=== PATIENT | female | born 1940 | race Caucasian/White ===

== ENCOUNTER 2021-12-27 13:24 | Emergency (ER) | payer BC, MEDICARE | END 2021-12-27 13:56 | disposition home or self-care (01) | LOC: BURERS 13:24 | DX: L03.116 Cellulitis of left lower limb (principal); I10 Essential (primary) hypertension; E11.9 Type 2 diabetes mellitus without complications; E78.00 Pure hypercholesterolemia, unspecified | CPT/HCPCS: 99283 ==

== ENCOUNTER 2022-01-03 14:34 | Emergency (ER) | payer MEDICARE ==
[2022-01-03] MEDS ORDERED: Bacitracin 1 PK ONE (15:06)
== END 2022-01-03 15:12 | disposition home or self-care (01) ==
LOC: BURERS 14:34
DX: S91.351D Open bite, right foot, subsequent encounter (principal); E11.9 Type 2 diabetes mellitus without complications; I10 Essential (primary) hypertension; E78.00 Pure hypercholesterolemia, unspecified; W57.XXXD Bitten or stung by nonvenomous insect and other nonvenomous arthropods, subsequent encounter; Z79.82 Long term (current) use of aspirin; Z79.899 Other long term (current) drug therapy
CPT/HCPCS: 99282

== ENCOUNTER 2022-03-12 21:21 | Emergency (ER) | payer OTHER, MEDICARE ==
[2022-03-12] MEDS ORDERED: Lidocaine 1% w/Epinephrine 1:100K 20 ML VIAL ONE (21:32)
[2022-03-12] MEDS ORDERED: Boostrix 0.5 ML (Tdap) VIAL ONE (21:50)
== END 2022-03-12 22:03 | disposition home or self-care (01) ==
LOC: BURERS 21:21
DX: S01.01XA Laceration without foreign body of scalp, initial encounter (principal); S50.312A Abrasion of left elbow, initial encounter; I10 Essential (primary) hypertension; E11.9 Type 2 diabetes mellitus without complications; E78.00 Pure hypercholesterolemia, unspecified; W01.198A Fall on same level from slipping, tripping and stumbling with subsequent striking against other object, initial encounter; Z23 Encounter for immunization; Z79.82 Long term (current) use of aspirin; Z79.899 Other long term (current) drug therapy
CPT/HCPCS: 12001; 90471; 90715

== ENCOUNTER 2022-03-18 08:47 | Emergency (ER) | payer MEDICARE | END 2022-03-18 09:19 | disposition home or self-care (01) | LOC: BURERS 08:47 | DX: S01.01XD Laceration without foreign body of scalp, subsequent encounter (principal); I10 Essential (primary) hypertension; E11.9 Type 2 diabetes mellitus without complications; E78.00 Pure hypercholesterolemia, unspecified; W19.XXXD Unspecified fall, subsequent encounter | CPT/HCPCS: 99281 ==